=== PATIENT | female | born 1980 | race Caucasian/White ===

== ENCOUNTER 2018-07-23 14:00 | Emergency (ER) | payer MEDICAID ==
--- NOTE | 2018-07-23 14:54 | ED Physician Documentation ---
History of Present Illness - Stated complaint Stated Complaint: DIZZY - Chief complaint Chief Complaint: General - History obtained from History obtained from: Patient - History of Present Illness Timing: Today Pain level max: 0 Pain level now: 0 Improved by: rest Worsened by: standing - Additonal information Additional information: 37-year-old female was at work today as of her wrist when she felt lightheaded dizzy and nauseated. Near syncope. Did not lose consciousness. She states this is happened in the past but not for several years. She states she ate and drank normally today. States still feels mildly lightheaded. Has not been sick recently. She had a hysterectomy 10 years ago. No chest pain. No palpitations. No headache. No focal neurological deficits. No fevers. Review of Systems Constitutional: denies: Fever, Chills Nose: denies: Rhinorrhea / runny nose, Congestion Respiratory: denies: Cough GI: reports: Nausea. denies: Vomiting, Diarrhea : reports: Hysterectomy. denies: Now EGA Skin: denies: Rash Musculoskeletal: denies: Neck pain, Back pain Neurologic: denies: Focal weakness, Numbness, Seizure, Confused, Headache PD PAST MEDICAL HISTORY - Past Medical History Past Medical History: No - Past Surgical History Past Surgical History: Yes /[employer]: Hysterectomy - Allergies Allergies/Adverse Reactions: Allergies Allergy/AdvReac Type Severity Reaction Status Date / Time No Known Drug Allergies Allergy Verified 07/23/18 14:08 - Living Situation Living Arrangement: reports: At home - Social History Does the pt smoke?: Yes Does the pt drink ETOH?: Yes Does the pt have substance abuse?: No - Family History Family history: reports: Non contributory PD ED PE NORMAL - Vitals Vital signs reviewed: Yes - General General: Alert and oriented X 3, No acute distress, Well developed/nourished - HEENT HEENT: PERRL, Moist mucous membranes, Pharynx benign - Neck Neck: Supple, no meningeal sign - Cardiac Cardiac: RRR, No murmur, Strong equal pulses - Respiratory Respiratory: No respiratory distress, Clear bilaterally - Abdomen Abdomen: Soft, Non tender, Non distended - Back Back: No CVA TTP, No spinal TTP - Derm Derm: Warm and dry - Extremities Extremities: No edema - Neuro Neuro: Alert and oriented X 3 - Psych Psych: Normal mood, Normal affect Results - Vitals Vitals: Vital Signs - 24 hr 07/23/18 07/23/18 14:04 16:02 Temperature 36.6 C 36.5 C Heart Rate 70 68 Respiratory 16 18 Rate Blood Pressure 128/82 H 118/74 O2 Saturation 99 99 Oxygen O2 Source Room air - EKG (time done) 1419 Rate: Rate (enter#) (68) Rhythm: NSR Parmele: Normal Intervals: Normal HI QRS: Normal Ischemia: Normal ST segments - Labs Labs: Laboratory Tests 07/23/18 07/23/18 14:24 15:15 POC Whole Bld Glucose 96 Urine Color YELLOW Urine Clarity CLEAR Urine pH 7.0 Ur Specific [place] <=1.005 Urine Protein NEGATIVE Urine Glucose (UA) NEGATIVE Urine Ketones NEGATIVE Urine Occult Blood NEGATIVE Urine Nitrite NEGATIVE Urine Bilirubin NEGATIVE Urine Urobilinogen 0.2 (NORMAL) Ur Leukocyte Esterase NEGATIVE Ur Microscopic Review NOT INDICATED Urine Culture Comments NOT INDICATED Urine HCG, Qual NEGATIVE PD MEDICAL DECISION MAKING - ED course Complexity details: reviewed results, re-evaluated patient, considered differential, d/w patient ED course: 37-year-old female with what appears to be vasovagal near syncope today. She feels better after drinking water in the emergency department. No arrhythmias on telemetry monitoring. No acute findings on EKG. Normal blood sugar. We will continue supportive care and follow-up with her doctor. Patient counseled regarding signs and symptoms for which I believe and urgent re-evaluation would be necessary. Patient with good understanding of and agreement to plan and is comfortable going home at this time This document was made in part using voice recognition software. While efforts are made to proofread this document, sound alike and grammatical errors may occur. Departure - Departure Disposition: 01 Home, Self Care Clinical Impression: Vasovagal near syncope Condition: Good Instructions: ED Near Syncope Vasovagal Follow-Up: your,doctor in 1 week [Other] Comments: Go home and rest today. Return if you worsen. Follow-up with your doctor for further care. Drink plenty of fluids at home Discharge Date/Time: 07/23/18 16:02
[2018-07-23 15:21] LABS: BILIRUBIN,URINE NEGATIVE (NEGATIVE); GLUCOSE, URINE (UA) NEGATIVE (NEGATIVE); KETONES,URINE (UA) NEGATIVE (NEGATIVE); LEUKOCYTE ESTERASE, URINE NEGATIVE (NEGATIVE); NITRITE,URINE NEGATIVE (NEGATIVE); OCCULT BLOOD,URINE NEGATIVE (NEGATIVE); PROTEIN,URINE NEGATIVE (NEGATIVE); UROBILINOGEN,URINE 0.2 (NORMAL) E.U./dL (NORMAL)
[2018-07-23 15:26] LABS: CLARITY,URINE CLEAR (CLEAR); HCG UR QUAL NEGATIVE
[2018-07-23 16:06] VITALS: BP 118/74
== END 2018-07-23 16:02 | disposition home or self-care (01) ==
LOC: ED 14:00
DX: R55 Syncope and collapse (principal)
CPT/HCPCS: 81001; 81003; 81025; 87086; 93005; 99283

== ENCOUNTER 2019-02-02 18:17 | Emergency (ER) | payer MEDICAID ==
[2019-02-02] MEDS ORDERED: IBUPROFEN 800 MG TABLET PO STA (19:41)
[2019-02-02] MEDS ORDERED: HYDROcod/ACET 5/325 Prepack 4 PO STA (19:41)
--- NOTE | 2019-02-02 19:43 | ED Physician Documentation ---
PD HPI UPPER EXT INJURY - Stated complaint Stated Complaint: RT SHOULDER PX - Chief complaint Chief Complaint: Ext Problem - History obtained from History obtained from: Patient - History of Present Illness Location: Right (For the last month without specific injury this right-handed hyacinth has had pain in the back of the right shoulder that is worse with abduction. 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 - Present Medications Home Medications: Ambulatory Orders Medication Instructions Recorded Confirmed Hydrocodone/Acetaminophen 1 - 2 each PO Q6H PRN #14 tablet 02/02/19 [Hydrocodon-Acetaminophen 5-325] Meloxicam [Mobic] 7.5 mg PO BID PRN #20 tablet 02/02/19 - Allergies Allergies/Adverse Reactions: Allergies Allergy/AdvReac Type Severity Reaction Status Date / Time No Known Drug Allergies Allergy Verified 02/02/19 18:27 - Social History Does the pt smoke?: Yes Smoking Status: Current every day smoker Does the pt drink ETOH?: Yes Does the pt have substance abuse?: No - Immunizations Immunizations are current?: Yes - POLST Patient has POLST: No PD ED PE NORMAL - Vitals Vital signs reviewed: Yes - General General: Alert and oriented X 3, No acute distress - Extremities Extremities: Other (Mild tenderness to the right shoulder posteriorly. She can abduct to about 90 degrees without pain. Further passively. Positive supraspinatus testing. She has incomplete numbness in a C6 distribution on the right with intact symmetric reflexes throughout. 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, interosseous, flexion and extension of the wrist are symmetric and normal throughout.) - Neuro Neuro: Alert and oriented X 3, Normal speech Results - Vitals Vitals: Vital Signs - 24 hr 02/02/19 18:27 Temperature 36.6 C Heart Rate 68 Respiratory 16 Rate Blood Pressure 110/66 O2 Saturation 99 Oxygen O2 Source Room air - Rads (name of study) X-rays of the right shoulder and cervical spine Radiology: EMP read contemporaneously (Mild cervical dextrocurvature and reversal of lordosis) PD MEDICAL DECISION MAKING - ED course ED course: This 38-year-old woman presents with right shoulder pain that has some features of both a cervical radiculopathy as well as a rotator cuff issue. Departure - Departure Disposition: 01 Home, Self Care Clinical Impression: Cervical radiculopathy Rotator cuff strain Qualifiers: Encounter type: initial encounter Laterality: right Qualified Code(s): S46.011A - Strain of muscle(s) and tendon(s) of the rotator cuff of right shoulder, initial encounter Condition: Good Record reviewed to determine appropriate education?: Yes Instructions: ED Cervical Radiculopathy, ED Tendinitis Rotator Cuff Follow-Up: [facility] [Provider Group] Prescriptions: Hydrocodone/Acetaminophen [Hydrocodon-Acetaminophen 5-325] 1 - 2 each PO Q6H PRN #14 tablet PRN Reason: pain Meloxicam [Mobic] 7.5 mg PO BID PRN #20 tablet PRN Reason: Pain Comments: I have given you an order for physical therapy for cervical radiculopathy and shoulder. Is also diaz to follow-up with an orthopedist. Numbers on this form to call. Return for any worsening symptoms. Try to maintain range of motion do gentle exercises with the shoulder despite the pain.
--- NOTE | 2019-02-02 20:24 | XRAY Report ---
Reason: arm numbness Procedure Date: 02/02/2019 Accession Number: [id number] / [id number] Procedure: XR - Cervical Spine 2 View CPT Code: FULL RESULT: EXAM: CERVICAL SPINE RADIOGRAPHY EXAM DATE: 02/02/2019 07:44 PM. CLINICAL HISTORY: Right shoulder pain with right arm numbness and tingling. COMPARISONS: None. TECHNIQUE: 3 views. FINDINGS: Alignment: Reversal of the upper normal cervical lordosis, likely positional. No vertebral body subluxation. Mild cervical dextrocurvature without scoliosis. Bones: The cervical vertebral bodies and posterior elements are well visualized from the skull base through C7-T1. No fractures or bone lesions. Normal bone mineralization. No congenital vertebral anomaly. Disks: Normal. Disk heights are maintained. Facets: No degenerative disease. Soft Tissues: Normal. No prevertebral soft tissue swelling. The visualized lung apices are clear. IMPRESSION: 1. Positional reversal of the normal cervical lordosis. 2. Mild cervical dextrocurvature without scoliosis. 3. The remainder of the cervical spine radiography is unremarkable. RADIA
--- NOTE | 2019-02-02 20:25 | XRAY Report ---
Reason: shoulder pain Procedure Date: 02/02/2019 Accession Number: [id number] / [id number] Procedure: XR - Shoulder 3 View RT CPT Code: FULL RESULT: EXAM: RIGHT SHOULDER RADIOGRAPHY EXAM DATE: 02/02/2019 07:44 PM. CLINICAL HISTORY: Shoulder pain. COMPARISON: None. TECHNIQUE: 3 views. FINDINGS: Bones: Normal bone mineralization. No fracture or bone lesion. Joints: The glenohumeral and acromioclavicular joints are normal. Soft tissues: The visualized hemithorax is unremarkable. No soft tissue swelling. IMPRESSION: Normal right shoulder radiography. RADIA
[2019-02-02 20:45] VITALS: BP 131/80
== END 2019-02-02 20:44 | disposition home or self-care (01) ==
LOC: ED 18:17
DX: M54.12 Radiculopathy, cervical region (principal); S46.011A Strain of muscle(s) and tendon(s) of the rotator cuff of right shoulder, initial encounter; X58.XXXA Exposure to other specified factors, initial encounter; F17.200 Nicotine dependence, unspecified, uncomplicated
CPT/HCPCS: 72040; 73030; 99283; A9270

== ENCOUNTER 2020-03-02 17:01 | Outpatient (CLI) | payer MEDICAID | END 2020-03-02 17:02 | disposition home or self-care (01) | LOC: COV 17:01 | PROVIDERS: ATTEND Family Medicine | DX: M79.10 Myalgia, unspecified site (principal); R09.81 Nasal congestion; Z20.828 Contact with and (suspected) exposure to other viral communicable diseases ==

== ENCOUNTER 2020-05-03 13:43 | Outpatient (CLI) | payer MEDICAID ==
--- OUTSIDE RECORDS SUMMARY | 2020-05-03 13:46 | EXTERNAL MEDICAL SUMMARY RPT | Continuity of Care Document ---
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 Unavailable Problems date description facility 2020-05-02 00:00:00 Migraine, unspecified, without [facility] mention of intractable migraine, [facility] without mention of status migrainosus 2020-05-02 00:00:00 [facility] 2020-05-02 00:00:00 [facility] neuritis or radiculitis, [facility] unspecified 2020-05-02 00:00:00 [facility] 2020-05-02 00:00:00 XR HIPS BILATERAL 2 VIEWS A/P [facility] PELVIS [facility] 2020-05-02 00:00:00 [facility], unspecified[facility] intractable, without status [facility] migrainosus 2020-05-02 00:00:00 [facility] 2020-05-02 00:00:00 Radiculopathy, [facility] 2020-05-02 00:00:00 Lumbar [facility]iculopathy [facility] 2020-05-02 00:00:00 [facility] 2020-05-02 00:00:00 [facility] 2020-05-02 00:00:00 [facility] 2020-05-02 00:00:00 Details of drug misuse [facility] 2020-05-02 00:00:00 [facility]raine [facility] 2020-05-02 00:00:00 [facility] 2020-05-02 00:00:00 [facility] 2020-05-02 00:00:00 Tobacco smoking status [facility] 2020-05-02 00:00:00 Total score? [facility] Prim [facility] Allergies date description facility [facility] LEVOFLOXACIN [facility] MICONAZOLE [facility] NO ALLERGY INFORMATION AVAILABLE [facility] NO KNOWN ALLERGIES [facility] HARP [facility] POLLEN EXTRACTS [facility] MILK [facility] Results test status date ordered by attending specimen mike e null F 2020-03-02 LANG.99 JAIME LANGROCK 03-02 17:00:00 13:30:00 facility observation status value reference units lab abnor mal line notes range code [facility] F NEGATIVE unknown [facility] - Report scanned to Patient' s EMR. Testing performe d at [facility] test status date ordered by attending specimen mike e T unknown 2020-03-02 unknown unknown unknown 00:00:00 COVID-19_REFEREN unknown 2020-03-02 unknown unknown unkno wn CE_TEST 00:00:00 _2019NCoV_COVID- unknown 2020-03-02 unknown unknown unkno wn 19_Lab_Test_Resul 00:00:00 t_Text_ T unknown 2020-03-02 unknown unknown unknown 00:00:00 COVID-19_REFEREN unknown 2020-03-02 unknown unknown unkno wn CE_TEST 00:00:00 _2019NCoV_COVID- unknown 2020-03-02 unknown unknown unkno wn 19_Lab_Test_Resul 00:00:00 t_Text_ facility observation status value reference units lab abnor mal line range code notes [facility] T unknown NEGATIVE unknown COVI unkn own unknown Primary Care D-19 [facility] COVID-19_REF unknown NEGATIVE unknown COVI unknown unknown Primary Care ERENCE_TEST D19.R [facility] EF [facility] _2019NCoV_CO unknown NEGATIVE unknown _665 unknown unknown Primary Care VID-19_Lab_Te [address] [facility] st_Result_Tex t_ [facility] T unknown NEGATIVE unknown COVI unkn own unknown [facility] D-19 [facility] COVID-[facility]_REF unknown NEGATIVE unknown COVI unknown unknown Primary Care ERENCE_TEST D19.R Heidi EF [facility] _2019NCoV_CO unknown NEGATIVE unknown _665 unknown unknown Primary Care VID-19_Lab_Te [address] [facility] st_Result_[place] t_ Social History date description facility 2020-05-02 00:00:00 Current every day smoker [facility] Social History date description facility 2020-05-02 00:00:00 Current [facility] day smoker [facility] date description facility [id number]
--- NOTE | 2020-05-03 23:49 | XRAY Report ---
PROCEDURE: Lumbar Spine 2 View INDICATIONS: LUMBAR RADICULOPATHY,HIP JOINT PAIN,RIGHT TECHNIQUE: 2 views of the lumbar spine were acquired. COMPARISON: None. FINDINGS: Bones: 5 vza-oaf-uxnhslf vertebrae are present. There is normal bony alignment. No vertebral body compression fractures. No suspicious bony lesions. Soft tissues: Overlying bowel gas pattern is normal. No suspicious soft tissue calcifications. Mult iple surgical clips project over the right hemipelvis. IMPRESSION: No osseous lesion. If there is continued clinical concern for pathology, then MRI should be consider ed for further evaluation. Reviewed by: Mandi Jenkins MD, PhD on 05/03/2020 4:34 PM PST Approved by: Mandi Jenkins MD, PhD on 05/03/2020 4:34 PM PST Station ID: [id number]
--- NOTE | 2020-05-03 23:49 | XRAY Report ---
PROCEDURE: Hips 2V BILAT INDICATIONS: LUMBAR RADICULOPATHY,HIP JOINT PAIN,RIGHT TECHNIQUE: 2 views of the right hip and left hip were acquired. COMPARISON: None FINDINGS: Bones: No fractures or dislocations. No suspicious bony lesions. The visualized pelvic ring appear s intact. Mild osseous hypertrophy noted in the hips bilaterally compatible with mild osteoarthritis. Soft tissues: No suspicious soft tissue calcifications or masses. Surgical clips project over the r ight lower quadrant of the abdomen. IMPRESSION: Mild bilateral hip osteoarthritis. Reviewed by: Mandi Jenkins MD, PhD on 05/03/2020 4:33 PM PST Approved by: Mandi Jenkins MD, PhD on 05/03/2020 4:33 PM [facility] Station ID: [id number]
== END 2020-05-03 13:44 | disposition home or self-care (01) ==
LOC: DI 13:43
PROVIDERS: ATTEND Family Medicine
DX: M16.0 Bilateral primary osteoarthritis of hip (principal); M54.16 Radiculopathy, lumbar region
CPT/HCPCS: 73521

== ENCOUNTER 2020-05-19 16:20 | Outpatient (CLI) | payer MEDICAID | END 2020-05-19 16:21 | disposition home or self-care (01) | LOC: COV 16:20 | PROVIDERS: ATTEND Family Medicine | DX: Z20.822 Contact with and (suspected) exposure to COVID-19 (principal) ==

== ENCOUNTER 2021-08-21 08:00 | Outpatient (CLI) | payer OTHER, MEDICAID | END 2021-08-21 23:59 | disposition home or self-care (01) | LOC: LAB.N 08:00 | PROVIDERS: ATTEND Registered Nurse | DX: R05.1 Acute cough (principal); Z20.822 Contact with and (suspected) exposure to COVID-19 ==

== ENCOUNTER 2021-08-21 08:00 | Outpatient (CLI) | payer OTHER, MEDICAID ==
--- NOTE | 2021-08-21 12:35 | XRAY Report ---
PROCEDURE: Chest 2 View X-Ray INDICATIONS: ACUTE COUGH TECHNIQUE: 2 view(s) of the chest. COMPARISON: None. FINDINGS: SUPPORT DEVICES: None. LUNGS/PLEURA: No focal consolidation, pleural effusion or space-occupying pneumothorax. MEDIASTINUM: The cardiomediastinal silhouette is within normal limits. BONES/SOFT TISSUES: No acute abnormality. IMPRESSION: 1.No acute cardiopulmonary abnormality. Reviewed by: Vladimir Parsons MD on 08/21/2021 12:34 PM PDT Approved by: Vladimir Parsons MD on 08/21/2021 12:34 PM PDT Station ID: [id number]
== END 2021-08-21 23:59 | disposition home or self-care (01) ==
LOC: DI.N 08:00
PROVIDERS: ATTEND Registered Nurse
DX: R05.1 Acute cough (principal); Z87.09 Personal history of other diseases of the respiratory system

== ENCOUNTER 2022-09-09 05:23 | Emergency (ER) | payer MEDICAID, OTHER ==
[2022-09-09] MEDS ORDERED: LIDOCAINE PATCH 5% TOP STA (05:59)
[2022-09-09] MEDS ORDERED: oxyCODONE/ACET 5/325 Prepack 4 PO STA (05:59)
--- NOTE | 2022-09-09 06:03 | ED Physician Documentation ---
PD HPI BACK PAIN - Stated complaint Stated Complaint: HIP PX - Chief complaint Chief Complaint: Trauma Ext - History obtained from History obtained from: Patient - Additional information Additional information: Patient is a 41-year-old female presenting for evaluation of low back pain that has been ongoing since she reports having children who are currently age 21 and 16. Although triage note states that patient has bilateral hips when I ask her where the pain as she points to the area of her low back and denies any pain in the Hips when I explained where the hips are.She states that she has been having a low back pain chronically for years that has recently been worsening. 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 She went to the walk-in clinic for her symptoms 2 months ago when she was having trouble sleeping and they recommended anti- inflammatories along with a muscle relaxer and lidocaine patches. They also thought she would benefit from physical therapy. She did not receive a call from them as she was told she would and did try to reach back out but was unable to get through.She denies any recent trauma or injury. Pain does not radiate elsewhere. She has been using anti-inflammatories without any improvement.She denies abdominal pain, dysuria, incontinence, saddle anesthesia. Denies history of IV drug use, blood thinners. 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 - Present Medications Home Medications: Ambulatory Orders Medication Instructions Recorded Confirmed Hydrocodone/Acetaminophen 1 - 2 each PO Q6H PRN #14 tablet 02/02/19 [Hydrocodon-Acetaminophen 5-325] Meloxicam [Mobic] 7.5 mg PO BID PRN #20 tablet 02/02/19 - Allergies Allergies/Adverse Reactions: Allergies Allergy/AdvReac Type Severity Reaction Status Date / Time No Known Drug Allergies Allergy Verified 09/09/22 05:39 - Social History Does the pt smoke?: Yes Smoking Status: Current every day smoker Does the pt drink ETOH?: Yes Does the pt have substance abuse?: No - Immunizations Immunizations are current?: Yes - POLST Patient has POLST: No PD ED PE NORMAL - General General: Alert and oriented X 3, No acute distress, Well developed/nourished - HEENT HEENT: Atraumatic - Neck Neck: Supple, no meningeal sign - Cardiac Cardiac: RRR, No murmur, Strong equal pulses - Respiratory Respiratory: No respiratory distress, Clear bilaterally - Abdomen Abdomen: Soft, Non tender, Non distended - Back Back: No spinal TTP, Other (left paralumbar ttp) - Derm Derm: Warm and dry - Extremities Extremities: Normal ROM s pain (at b/l hips), No edema - Neuro Neuro: Alert and oriented X 3, No motor deficit, No sensory deficit, Normal speech Results - Vitals Vitals: Vital Signs - 24 hr 09/09/22 09/09/22 05:36 06:19 Temperature 36.4 C L Heart Rate 78 85 Respiratory 19 18 Rate Blood Pressure 108/70 113/74 O2 Saturation 100 99 Oxygen O2 Source Room air PD Medical Decision Making - ED course ED course: Pt with atraumatic low back pain for years. No red flag signs/symptoms in regards to back pain. Neurovascuarly intact. Pt had difficulty sleeping recently as pain is worse at night after working and says she notices it more when she is still. She is awaiting PT referral from walk in clinic. DIscussed options for treatment and we have decided for a small amount of pain medicine to use sparingly as she did not have much improvement previously with muscle relaxers. Discussed that her line of work with lifting/bending/twisting often may be further exacerbating her symptoms. Pt advised on need for close follow up and concerning symptoms to return for. Departure - Departure Disposition: 01 Home, Self Care Clinical Impression: Low back strain Condition: Stable Instructions: ED Sprain Strain Lumbar, ED Neck Back Pain General Follow-Up: [facility] [Provider Group] Comments: Low back pain can be challenging especially when it has been going on for years.I would recommend a follow-up with the walk-in clinic for the PT referral as physical therapy may be helpful. I sent you home with a small amount of narcotic pain medication to use sparingly. Please do not drive or operate machinery when taking this. I would continue with anti-inflammatories, lidocaine patch, ice versus heat and rest. Continuing to do activities that you are required to do at work such as lifting, bending and twisting May further strain and injure your back. I would again recommend close follow-up with the walk-in clinic.You may need an MRI. If you develop any worsening symptoms such as trouble controlling your bowel or bladder function, weakness, fevers or have any new concerns please return to the emergency department. I am prescribing a short course of narcotic pain medication for you. These are potentially dangerous and addictive medications that should be used carefully. These medications may constipate you. Take an fppx-wgo-fyudblg stool softener (docusate) twice daily with plenty of water while taking these medications. If you go 24 hours without a bowel movement, take iexj-gdf-skggsah miralax, per package instructions. Do not drink or drive while taking these medications. If you received narcotic or sedating medications while in the emergency department, do not drive for 24 hours. Store this medication in a safe, secure place and out of reach of children. It is a violation of federal law to give or sell this medication to another person or to use in a manner other than prescribed. The ED will not refill narcotic prescriptions, including prescriptions lost or stolen. To dispose of unwanted medications: 1. [facility] [address] [facility] in [place] has a medication drop box. They accept prescription medications (in pill form) Friday through Friday 9:00 a.m. to 5:00 p.m. 2. [facility] [employer] accepts prescription medications (in pill form only) for disposal year round. Call for more information. 3. Contact the [facility] for the next [facility] sponsored prescription drug collection event. , x7310, or [phone]; Note that many narcotic pain relievers also contain Tylenol/acetaminophen. Please ensure that your total dose of acetaminophen from all sources does not exceed 3 g (3000 mg) per day. Forms: Activity restrictions Discharge Date/Time: 09/09/22 06:21
[2022-09-09 06:23] VITALS: BP 113/74
== END 2022-09-09 06:21 | disposition home or self-care (01) ==
LOC: ED 05:23
DX: S39.012A Strain of muscle, fascia and tendon of lower back, initial encounter (principal); X58.XXXA Exposure to other specified factors, initial encounter; F17.200 Nicotine dependence, unspecified, uncomplicated
CPT/HCPCS: 99282; 99283; A9270

== ENCOUNTER 2023-03-17 11:30 | Outpatient (CLI) | payer MEDICAID, OTHER | END 2023-03-17 11:45 | disposition home or self-care (01) | LOC: LAB.N 11:30 | PROVIDERS: ATTEND Physician Assistant Medical | DX: R30.0 Dysuria (principal) | CPT/HCPCS: 87077; 87086; 87181 ==

== ENCOUNTER 2023-04-04 13:42 | Emergency (ER) | payer MEDICAID, OTHER ==
[2023-04-04 14:08] LABS: BILIRUBIN,URINE NEGATIVE (NEGATIVE); KETONES,URINE (UA) NEGATIVE (NEGATIVE); LEUKOCYTE ESTERASE, URINE NEGATIVE (NEGATIVE); OCCULT BLOOD,URINE NEGATIVE (NEGATIVE)
[2023-04-04 14:09] VITALS: BP 132/84; O2SAT 99
--- NOTE | 2023-04-04 14:10 | ED Physician Documentation ---
History of Present Illness - Stated complaint Stated Complaint: FEMALE - Chief complaint Chief Complaint: UTI - History obtained from History obtained from: Patient - Additonal information Additional information: She had a UTI about a month ago and was treated with 3 days of Cipro. Is back since yesterday with left flank pain, pelvic pressure, burning and dysuria. No fevers. 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 - Present Medications Home Medications: Ambulatory Orders Medication Instructions Recorded Confirmed Hydrocodone/Acetaminophen 1 - 2 each PO Q6H PRN #14 tablet 02/02/19 [Hydrocodon-Acetaminophen 5-325] Meloxicam [Mobic] 7.5 mg PO BID PRN #20 tablet 02/02/19 Ciprofloxacin HCl [Cipro] 500 mg PO BID #20 tablet 04/04/23 - Allergies Allergies/Adverse Reactions: Allergies Allergy/AdvReac Type Severity Reaction Status Date / Time No Known Drug Allergies Allergy Verified 09/09/22 05:39 - Social History Does the pt smoke?: Yes Smoking Status: Current every day smoker Does the pt drink ETOH?: Yes Does the pt have substance abuse?: No - Immunizations Immunizations are current?: Yes - POLST Patient has POLST: No PD ED PE NORMAL - Vitals Vital signs reviewed: Yes - General General: Alert and oriented X 3, No acute distress - Abdomen Abdomen: Non tender - Back Back: Other (Mild left CVA tenderness) - Neuro Neuro: Alert and oriented X 3, Normal speech Results - Vitals Vitals: Vital Signs - 24 hr 04/04/23 13:53 Temperature 36.3 C L Heart Rate 77 Respiratory 18 Rate Blood Pressure 132/84 H O2 Saturation 99 Oxygen O2 Source Room air - Labs Labs: Laboratory Tests 04/04/23 14:00 Urine Color ORANGE Urine Clarity CLEAR Urine pH Ur Specific [place] Urine Protein Urine Glucose (UA) Urine Ketones NEGATIVE Urine Occult Blood NEGATIVE Urine Nitrite Urine Bilirubin NEGATIVE Urine Urobilinogen Ur Leukocyte Esterase NEGATIVE Urine RBC 0-5 Urine WBC 6-10 H Urine WBC Clumps PRESENT Ur Squamous Epith Cells RARE Squamous Urine Bacteria Moderate H Urine Mucus Few Strands Ur Microscopic Review INDICATED Urine Culture Comments NOT INDICATED Urine HCG, Qual NEGATIVE PD Medical Decision Making - ED course ED course: She presents with UTI symptoms that, this is recurrent. Wonder if she might have mild left pyelo given the tenderness there and therefore did not improve from the last 1 because she was treated with only 3 days of antibiotics?. Departure - Departure Disposition: 01 Home, Self Care Clinical Impression: Pyelonephritis Condition: Good Record reviewed to determine appropriate education?: Yes Instructions: Pyelonephritis Dc Prescriptions: Ciprofloxacin HCl [Cipro] 500 mg PO BID #20 tablet Comments: We will culture your urine, the results should be done in 48-72 hours. If an antibiotic change is necessary we will call you. Return if worse in the meantime, especially if you develop increasing flank pain, fevers, or cannot keep down the medication. I sent the prescription electronically to [facility]. Discharge Date/Time: 04/04/23 14:14
[2023-04-04 14:25] LABS: CLARITY,URINE CLEAR (CLEAR)
[2023-04-04 14:29] LABS: HCG UR QUAL NEGATIVE
[2023-04-04 14:30] LABS: BACTERIA,URINE Moderate /HPF (None Seen); MUCUS,URINE Few Strands; RBC,URINE 0-5 /HPF (0-5); SQUAMOUS EPITHELIAL CELL,UR RARE Squamous (<= Few); WBC CLUMPS,URINE PRESENT
== END 2023-04-04 14:14 | disposition home or self-care (01) ==
LOC: ED 13:42
DX: N12 Tubulo-interstitial nephritis, not specified as acute or chronic (principal); F17.200 Nicotine dependence, unspecified, uncomplicated
CPT/HCPCS: 81001; 81003; 81025; 87086; 99283

== ENCOUNTER 2023-04-11 07:04 | Emergency (ER) | payer MEDICAID ==
[2023-04-11 07:41] LABS: BASOPHILS # (AUTO) 0.1 10^3/uL (0.0-0.1); BASOPHILS % (AUTO) 0.6 %; EOSINOPHILS # (AUTO) 0.3 10^3/uL (0.0-0.7); EOSINOPHILS % (AUTO) 2.6 %; HCT - HEMATOCRIT 44.6 % (37.0-47.0); HGB - HEMOGLOBIN 15.1 g/dL (12.0-16.0); LYMPHOCYTES # (AUTO) 3.8 10^3/uL (1.5-3.5); LYMPHOCYTES % (AUTO) 37.5 %; MEAN CORPUSCULAR HEMOGLOBIN 31.2 pg (27.0-31.0); MEAN CORPUSCULAR HGB CONC 33.9 g/dL (32.0-36.0); MEAN CORPUSCULAR VOLUME 92.1 fL (81.0-99.0); MEAN PLATELET VOLUME 9.4 fL (7.9-10.8); MONOCYTES # (AUTO) 0.5 10^3/uL (0.0-1.0); MONOCYTES % (AUTO) 5.2 %; NEUTROPHILS # (AUTO) 5.5 10^3/uL (1.5-6.6); NEUTROPHILS % (AUTO) 53.8 %; PLT - PLATELET COUNT 297 10^3/uL (130-450); RED BLOOD COUNT 4.84 10^6/uL (4.20-5.40); RED CELL DISTRIBUTION WIDTH 12.7 % (12.0-15.0); WHITE BLOOD COUNT 10.2 x10^3/uL (4.8-10.8)
[2023-04-11 07:50] LABS: ALBUMIN 4.3 g/dL (3.2-5.5); ALBUMIN/GLOBULIN RATIO 1.5 (1.0-2.2); BILIRUBIN,TOTAL 0.8 mg/dL (0.2-1.0); CALCIUM 9.3 mg/dL (8.5-10.3); CREATININE 0.7 mg/dL (0.6-1.3); POTASSIUM 4.1 mmol/L (3.5-4.5); TOTAL PROTEIN 7.2 g/dL (6.4-8.9)
[2023-04-11 08:10] LABS: BILIRUBIN,URINE NEGATIVE (NEGATIVE); GLUCOSE, URINE (UA) NEGATIVE (NEGATIVE); KETONES,URINE (UA) TRACE mg/dL (NEGATIVE); LEUKOCYTE ESTERASE, URINE NEGATIVE (NEGATIVE); NITRITE,URINE NEGATIVE (NEGATIVE); OCCULT BLOOD,URINE NEGATIVE (NEGATIVE); PROTEIN,URINE TRACE mg/dL (NEGATIVE); UROBILINOGEN,URINE 0.2 (NORMAL) E.U./dL (NORMAL)
[2023-04-11 08:12] LABS: CLARITY,URINE CLEAR (CLEAR)
--- NOTE | 2023-04-11 08:33 | ED Physician Documentation ---
History of Present Illness - Stated complaint Stated Complaint: BODY ACHES/HEAD PX - Chief complaint Chief Complaint: Abd Pain - History obtained from History obtained from: Patient - Additonal information Additional information: Patient is a 42-year-old femaleWith a history of fibromyalgia and rheumatoid arthritis presenting for evaluation of bodyaches for the past 5 days. She also reports noticing some cloudy urine again today. She was seen here on April 04 and thought to have a UTI and given a course of antibiotics. Reports her symptoms got better but again noted this morning some cloudiness in her urine. She also feels some fullness in her bladder. No nausea, vomiting or diarrhea and reports her appetite has been normal. She also reports someDiscomfort in the right ear that has been intermittent for the past day. No cough, congestion, chest pain or shortness of air. Denies vaginal bleeding or discharge. Has not taken a COVID test. Has tried [id number] anti-inflammatories without any significant improvement.Denies recent travel or known sick contacts.She also reports chronic pain in the right hip which is slightly been worse over the past 5 days with her other symptoms. She reports some shooting pain into the right leg. No trauma. Review of Systems Constitutional: reports: Myalgias. 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 - Present Medications Home Medications: Ambulatory Orders Medication Instructions Recorded Confirmed Hydrocodone/Acetaminophen 1 - 2 each PO Q6H PRN #14 tablet 02/02/19 [Hydrocodon-Acetaminophen 5-325] Meloxicam [Mobic] 7.5 mg PO BID PRN #20 tablet 02/02/19 Ciprofloxacin HCl [Cipro] 500 mg PO BID #20 tablet 04/04/23 predniSONE [Deltasone] 20 mg PO [id number] #21 tab 04/11/23 - Allergies Allergies/Adverse Reactions: Allergies Allergy/AdvReac Type Severity Reaction Status Date / Time No Known Drug Allergies Allergy Verified 09/09/22 05:39 - Social History Does the pt smoke?: Yes Smoking Status: Current every day smoker Does the pt drink ETOH?: Yes Does the pt have substance abuse?: No - Immunizations Immunizations are current?: Yes - POLST Patient has POLST: No PD ED PE NORMAL - General General: Alert and oriented X 3, No acute distress, Well developed/nourished - HEENT HEENT: Atraumatic, Ears normal, Moist mucous membranes, Pharynx benign - Neck Neck: Supple, no meningeal sign - Cardiac Cardiac: RRR, Strong equal pulses - Respiratory Respiratory: No respiratory distress, Clear bilaterally - Abdomen Abdomen: Normal bowel sounds, Soft, Non tender, Non distended - Back Back: No CVA TTP, No spinal TTP - Derm Derm: Warm and dry - Extremities Extremities: Normal ROM s pain, Other (No redness or swelling to right hip, no tenderness, no deformity, ambulates without difficulty) - Neuro Neuro: Normal speech Results - Vitals Vitals: Vital Signs - 24 hr 04/11/23 04/11/23 07:18 09:19 Temperature 36.3 C L Heart Rate 97 68 Respiratory 18 15 Rate Blood Pressure 132/69 H 117/73 O2 Saturation 98 100 Oxygen O2 Source Room air - Labs Labs: Laboratory Tests 04/11/23 04/11/23 04/11/23 07:29 07:29 08:04 WBC 10.2 RBC 4.84 Hgb 15.1 Hct 44.6 MCV 92.1 MCH 31.2 H MCHC 33.9 RDW 12.7 Plt Count 297 MPV 9.4 Neut # (Auto) 5.5 Lymph # (Auto) 3.8 H [place] # (Auto) 0.5 Eos # (Auto) 0.3 Baso # (Auto) 0.1 Absolute Nucleated RBC 0.00 Nucleated RBC % 0.0 Sodium 134 L Potassium 4.1 Chloride 103 Carbon Dioxide 22 Anion Gap 9.0 BUN 11 Creatinine 0.7 Estimated GFR (MDRD) 93 Glucose 117 H Calcium 9.3 Total Bilirubin 0.8 AST 14 ALT 12 Alkaline Phosphatase 40 L Total Protein 7.2 Albumin 4.3 Globulin 2.9 Albumin/Globulin Ratio 1.5 Lipase 54 Urine Color YELLOW Urine Clarity CLEAR Urine pH 7.0 Ur Specific [place] 1.025 Urine Protein TRACE Urine Glucose (UA) NEGATIVE Urine Ketones TRACE Urine Occult Blood NEGATIVE Urine Nitrite NEGATIVE Urine Bilirubin NEGATIVE Urine Urobilinogen 0.2 (NORMAL) Ur Leukocyte Esterase NEGATIVE Ur Microscopic Review NOT INDICATED Urine Culture Comments NOT INDICATED Nasal Adenovirus (PCR) Nasal B. parapertussis DNA (PCR) Nasal Coronavir 229E PCR Nasal Coronavir HKU1 PCR Nasal Coronavir NL63 PCR Nasal Coronavir OC43 PCR Nasal Enterovir/Rhinovir PCR Nasal Influenza B PCR Nasal Influenza A PCR Nasal Parainfluen 1 PCR Nasal Parainfluen 2 PCR Nasal Parainfluen 3 PCR Nasal Parainfluen 4 PCR Nasal RSV (PCR) Nasal B.pertussis DNA PCR Nasal C.pneumoniae (PCR) Louis Human Metapneumo PCR Nasal M.pneumoniae (PCR) Nasal SARS-CoV-2 (PCR) Chlam trachomat DNA PCR N.gonorrhoeae DNA (PCR) T. vaginalis (PCR) 04/11/23 04/11/23 08:04 08:16 WBC RBC Hgb Hct MCV MCH MCHC RDW Plt Count MPV Neut # (Auto) Lymph # (Auto) [place] # (Auto) Eos # (Auto) Baso # (Auto) Absolute Nucleated RBC Nucleated RBC % Sodium Potassium Chloride Carbon Dioxide Anion Gap BUN Creatinine Estimated GFR (MDRD) Glucose Calcium Total Bilirubin AST ALT Alkaline Phosphatase Total Protein Albumin Globulin Albumin/Globulin Ratio Lipase Urine Color Urine Clarity Urine pH Ur Specific [place] Urine Protein Urine Glucose (UA) Urine Ketones Urine Occult Blood Urine Nitrite Urine Bilirubin Urine Urobilinogen Ur Leukocyte Esterase Ur Microscopic Review Urine Culture Comments Nasal Adenovirus (PCR) NOT DETECTED Nasal B. parapertussis DNA (PCR) NOT DETECTED Nasal Coronavir 229E PCR NOT DETECTED Nasal Coronavir HKU1 PCR NOT DETECTED Nasal Coronavir NL63 PCR NOT DETECTED Nasal Coronavir OC43 PCR NOT DETECTED Nasal Enterovir/Rhinovir PCR NOT DETECTED Nasal Influenza B PCR NOT DETECTED Nasal Influenza A PCR NOT DETECTED Nasal Parainfluen 1 PCR NOT DETECTED Nasal Parainfluen 2 PCR NOT DETECTED Nasal Parainfluen 3 PCR NOT DETECTED Nasal Parainfluen 4 PCR NOT DETECTED Nasal RSV (PCR) NOT DETECTED Nasal B.pertussis DNA PCR NOT DETECTED Nasal C.pneumoniae (PCR) NOT DETECTED Louis Human Metapneumo PCR NOT DETECTED Nasal M.pneumoniae (PCR) NOT DETECTED Nasal SARS-CoV-2 (PCR) NOT DETECTED Chlam trachomat DNA PCR NEGATIVE N.gonorrhoeae DNA (PCR) NEGATIVE T. vaginalis (PCR) TNP PD Medical Decision Making - ED course Complexity details: reviewed results, re-evaluated patient, d/w patient ED course: Patient is a 42-year-old female presenting for evaluation of generalized bodyaches, right hip pain for the last several days along with noticing some cloudy urine today. She has good range of motion of the right hip with no visible deformity and no signs of a septic joint. Vital signs are stable. Urine was obtained without signs of infection. Vaginal swabs were also obtained. No tenderness noted on exam. CBC and chemistries are unremarkable. Suspect possible viral etiology versus flareup of her rheumatoid arthritis from recent infection. Patient's primary concern at this time is pain that she has on and off in her right hip that has recently worsened. Low suspicion for fracture or dislocation given age and lack of trauma as well as ability to ambulate without difficulty. Will trial a course of steroids given her history of autoimmune conditions. Patient counseled on continued supportive care as well as concerning symptoms to return for. Advised on need for close follow-up with primary care provider. Departure - Departure Disposition: Home, Self Care Clinical Impression: Right hip pain, Myalgia Condition: Stable Instructions: ED Muscle Aching, ED Strain Muscle Ext Prescriptions: predniSONE [Deltasone] 20 mg PO [id number] #21 tab Comments: Your blood tests and your urine analysis are unremarkable today without any significant findings. Your respiratory panel is pending. This will check for COVID, influenza, RSV and a number of other common cold viruses. We will notify you if it is positive for COVID. Otherwise you can check the patient portal for your results. You should quarantine from others until you know your COVID result. Please continue with acetaminophen or ibuprofen as needed for fevers and body aches, plenty of fluids/hydration and rest. Return to the ER with any worsening symptoms such as difficulty breathing or vomiting. You also have vaginal swabs which are also pending to see if this is causing any of the pressure sensation that you are feeling. We will notify you of any abnormal results. In the meanwhile I am sending a prescription for a course of a steroid called prednisone to [facility] in [place] to see if this helps with your hip pain ad other pains given your history of rheumatoid arthritis. Continue with ice, anti-inflammatories, rest.I would recommend close follow-up with your primary care provider. Return to the ER with any new or worsening symptoms. Forms: PCP List, Activity restrictions Discharge Date/Time: 04/11/23 09:20
[2023-04-11 09:21] LABS: B. PARAPERTUSSIS- RESP PCR PAN NOT DETECTED; B. PERTUSSIS- RESP PCR PANEL NOT DETECTED; C. PNEUMONIAE- RESP PCR PANEL NOT DETECTED; CORONAVIRUS 229E-RESP PCR NOT DETECTED; CORONAVIRUS HKU1-RESP PCR NOT DETECTED; CORONAVIRUS NL63-RESP PCR NOT DETECTED; CORONAVIRUS OC43-RESP PCR NOT DETECTED; HUMAN METAPNEUMOVIRUS NOT DETECTED; INFLUENZA A- RESP PCR PANEL NOT DETECTED; INFLUENZA B - RESP PCR PANEL NOT DETECTED; M. PNEUMONIAE- RESP PCR PANEL NOT DETECTED; PARAINFLUENZA VIRUS 1 NOT DETECTED; PARAINFLUENZA VIRUS 2 NOT DETECTED; PARAINFLUENZA VIRUS 3 NOT DETECTED; PARAINFLUENZA VIRUS 4 NOT DETECTED; RHINOVIRUS/ENTEROVIRUS NOT DETECTED; RSV- RESP PCR PANEL NOT DETECTED; SARS-CoV-2 -RESP PCR PANEL NOT DETECTED
[2023-04-11 09:24] VITALS: BP 117/73; O2SAT 100
[2023-04-11 12:30] LABS: CHLAMYDIA TRACHOMATIS DNA NEGATIVE (NEGATIVE); NEISSERIA GONORRHOEAE DNA NEGATIVE (NEGATIVE)
[2023-04-11 22:00] LABS: BACTERIAL VAGINOSIS DNA POSITIVE (NEGATIVE); CANDIDA GLABRATA DNA NEGATIVE (NEGATIVE); CANDIDA GROUP DNA NEGATIVE (NEGATIVE); CANDIDA KRUSEI DNA NEGATIVE (NEGATIVE); TRICHOMONAS VAGINALIS DNA NEGATIVE (NEGATIVE)
== END 2023-04-11 09:20 | disposition home or self-care (01) ==
LOC: ED 07:04
DX: N76.0 Acute vaginitis (principal); M25.551 Pain in right hip; M79.10 Myalgia, unspecified site; F17.200 Nicotine dependence, unspecified, uncomplicated
CPT/HCPCS: 36415; 51798; 80053; 81001; 81003; 81514; 83690; 85025; 87086; 87491; 87591; 87633; 87661; 99283

== ENCOUNTER 2023-05-05 09:47 | Outpatient (CLI) | payer MEDICAID ==
[2023-05-05 12:02] LABS: BASOPHILS # (AUTO) 0.1 10^3/uL (0.0-0.1); BASOPHILS % (AUTO) 0.7 %; EOSINOPHILS # (AUTO) 0.2 10^3/uL (0.0-0.7); EOSINOPHILS % (AUTO) 2.5 %; HGB - HEMOGLOBIN 14.4 g/dL (12.0-16.0); LYMPHOCYTES % (AUTO) 37.7 %; MEAN CORPUSCULAR HGB CONC 33.5 g/dL (32.0-36.0); MEAN CORPUSCULAR VOLUME 92.5 fL (81.0-99.0); MEAN PLATELET VOLUME 9.9 fL (7.9-10.8); MONOCYTES # (AUTO) 0.5 10^3/uL (0.0-1.0); MONOCYTES % (AUTO) 5.7 %; NEUTROPHILS # (AUTO) 4.2 10^3/uL (1.5-6.6); PLT - PLATELET COUNT 301 10^3/uL (130-450); RED BLOOD COUNT 4.65 10^6/uL (4.20-5.40); RED CELL DISTRIBUTION WIDTH 12.7 % (12.0-15.0)
[2023-05-05 12:21] LABS: BILIRUBIN,URINE NEGATIVE (NEGATIVE); GLUCOSE, URINE (UA) NEGATIVE (NEGATIVE); KETONES,URINE (UA) NEGATIVE (NEGATIVE); LEUKOCYTE ESTERASE, URINE NEGATIVE (NEGATIVE); NITRITE,URINE NEGATIVE (NEGATIVE); OCCULT BLOOD,URINE NEGATIVE (NEGATIVE); PROTEIN,URINE NEGATIVE (NEGATIVE); UROBILINOGEN,URINE 0.2 (NORMAL) E.U./dL (NORMAL)
[2023-05-05 12:43] LABS: BACTERIA,URINE None Seen /HPF (None Seen); CLARITY,URINE CLEAR (CLEAR); RBC,URINE None Seen /HPF (0-5); SQUAMOUS EPITHELIAL CELL,UR NONE SEEN (<= Few); WBC,URINE 0-3 /HPF (0-5)
[2023-05-05 12:55] LABS: THYROID STIMULATING HORMONE 1.49 uIU/mL (0.34-5.60)
[2023-05-05 13:24] LABS: ALBUMIN 4.4 g/dL (3.2-5.5); ALBUMIN/GLOBULIN RATIO 1.6 (1.0-2.2); ALKALINE PHOSPHATASE 43 IU/L (42-121); ALT ALANINE AMINOTRANSFERASE 14 IU/L (10-60); AST ASPARTATE AMINOTRANSFERASE 14 IU/L (10-42); BILIRUBIN,TOTAL 0.8 mg/dL (0.2-1.0); BUN - BLOOD UREA NITROGEN 9 mg/dL (6-20); CALCIUM 9.3 mg/dL (8.5-10.3); CARBON DIOXIDE - CO2 27 mmol/L (21-32); CHLORIDE 100 mmol/L (101-111); CHOL/HDL RATIO 2.6 (<4.4); CHOLESTEROL 179 mg/dL; CREATININE 0.7 mg/dL (0.6-1.3); GFR - MDRD 93 (>89); GLUCOSE 94 mg/dL (74-104); HDL CHOLESTEROL 69 mg/dL; LDL CHOLESTEROL,CALCULATED 82 mg/dL; LDL/HDL RATIO 1.2 (<4.4); SODIUM 134 mmol/L (135-145); TOTAL PROTEIN 7.1 g/dL (6.4-8.9); TRIGLYCERIDES 140 mg/dL (48-352); VLDL CHOLESTEROL 28 mg/dL
== END 2023-05-05 09:48 | disposition home or self-care (01) ==
LOC: LAB.N 09:47
PROVIDERS: ATTEND Physician Assistant
DX: R30.0 Dysuria (principal); Z13.9 Encounter for screening, unspecified
CPT/HCPCS: 36415; 80053; 80061; 81001; 83721; 84443; 85025; 87086

== ENCOUNTER 2023-05-13 18:48 | Outpatient (CLI) | payer MEDICAID ==
--- NOTE | 2023-05-14 09:28 | Ultrasound Report ---
PROCEDURE: Pelvic w/Transvaginal INDICATIONS: PELVIC PAIN TECHNIQUE: Real-time scanning was performed of the pelvic organs, with image documentation. Additional endovagi nal scanning was necessary due to incomplete visualization of the adnexal and endometrial structures by transabdominal scanning. COMPARISON: None. FINDINGS: Uterus: Absent Ovaries: Right ovary measures 4 cc. There is a dominant follicle present. Left ovary measures 18 cc. Complex cyst seen, probably hemorrhagic cyst, measuring up to 2.1 x 2 cm. Color flows are present. Other: No pathologic free fluid. IMPRESSION: Status post partial hysterectomy. Mildly enlarged left ovary, with likely 2.1 cm hemorrhagic cyst. I n the setting of pain, consider clinical follow-up and reimaging if indicated as this could predispos e to torsion. Reviewed by: Franky Camarillo MD on 05/14/2023 9:27 AM PST Approved by: Franky Camarillo MD on 05/14/2023 9:27 AM PST Station ID: [id number]
== END 2023-05-13 18:49 | disposition home or self-care (01) ==
LOC: DI 18:48
PROVIDERS: ATTEND Physician Assistant
DX: R10.2 Pelvic and perineal pain (principal); N83.8 Other noninflammatory disorders of ovary, fallopian tube and broad ligament; Z90.710 Acquired absence of both cervix and uterus

== ENCOUNTER 2023-06-11 07:43 | Outpatient (CLI) | payer MEDICAID ==
--- NOTE | 2023-06-11 13:02 | XRAY Report ---
PROCEDURE: Thoracic Spine 2V INDICATIONS: MUSCLE SPASM OF THORACIC BACK TECHNIQUE: 3 views of the thoracic spine were acquired. COMPARISON: None. FINDINGS: Bones: No fractures or dislocations. No suspicious bony lesions. 12 pairs of ribs are noted, and a ppear intact where visualized. Soft tissues: No paravertebral stripe thickening. IMPRESSION: No acute bony abnormality. No significant degenerative change. Reviewed by: Santi Lopez MD on 06/11/2023 1:01 PM PST Approved by: Santi Lopez MD on 06/11/2023 1:01 PM PST Station ID: [id number]
== END 2023-06-11 07:44 | disposition home or self-care (01) ==
LOC: DI.N 07:43
PROVIDERS: ATTEND Family Medicine
DX: M62.830 Muscle spasm of back (principal)

== ENCOUNTER 2023-06-27 19:29 | Outpatient (CLI) | payer MEDICAID ==
--- NOTE | 2023-06-30 19:14 | Ultrasound Report ---
PROCEDURE: Pelvic w/Transvaginal INDICATIONS: PELVIC PAIN TECHNIQUE: Real-time scanning was performed of the pelvic organs, with image documentation. Additional endovagi nal scanning was necessary due to incomplete visualization of the adnexal and endometrial structures by transabdominal scanning. COMPARISON: Pelvic ultrasound on May 13, 2023. FINDINGS: Uterus: Surgically absent. Ovaries: The right ovary measures 3.4 x 1.2 x 2.2 cm, with a calculated ovarian volume of 4.4 cc. T he left ovary measures 3 x 2.3 x 2.9 cm, with a calculated ovarian volume of 10.5 cc. Interval evolut ion of left-sided complex cyst, probably hemorrhagic, with increased fluid component measuring 1.9 x 2 x 1.9 cm. The ovaries have a normal sonographic appearance. Less than 12 follicles can be seen in each ovary. No adnexal masses are seen. No cystic lesions measuring greater than 3 cm. Other: No pathologic free abdominal or pelvic fluid. IMPRESSION: 1.Hysterectomy. 2.Compared to prior ultrasound dated May 13, 2023, left ovary has decreased in size and volume wi th interval evolution of left-sided probable hemorrhagic cyst which measures 1.9 x 2 x 1.9 cm. Consid er clinical follow-up and repeat imaging, if clinically warranted. Reviewed by: Mindy Hernández MD on 06/30/2023 7:13 PM PDT Approved by: Mindy Hernández MD on 06/30/2023 7:13 PM PDT Station ID: [id number]
== END 2023-06-27 19:30 | disposition home or self-care (01) ==
LOC: DI 19:29
PROVIDERS: ATTEND Obstetrics & Gynecology
DX: Z09 Encounter for follow-up examination after completed treatment for conditions other than malignant neoplasm (principal); Z87.42 Personal history of other diseases of the female genital tract; Z90.710 Acquired absence of both cervix and uterus